=== PATIENT | male | born 1990 ===

== ENCOUNTER 2024-03-08 14:43 | Emergency (ER) | payer MEDICAID, SELFPAY ==
[2024-03-08] VITALS (10 sets, daily range): BP systolic 162–172; BP diastolic 114–125; PULSE 77–87; RESP 12–23; TEMP 36.8; O2SAT 97–100
--- NOTE | ~2024-03-08 | XR_ITS ---
Clinical Indication: Shortness of breath PA and lateral views of the chest: Comparison: None Findings: The lungs are clear, without evidence of focal consolidation or pleural effusion. Cardiome diastinal silhouette is within normal limits. Bones and soft tissues are unremarkable. Impression: Normal chest. Reviewed, dictated and finalized at [facility]. Impression: Normal chest.
--- NOTE | 2024-03-08 14:47 | ECG_ITS ---
Test Date: 2024-03-08 14:58:48 Measurements Intervals [place] Rate: 84 P: 64 DC: 132 QRS: 58 QRSD: 85 T: 34 QT: 372 QTc: 440 Interpretive Statements SINUS RHYTHM BASELINE ARTIFACT- I, II, AVR NORMAL ECG No previous ECG available for comparison Electronically Signed On 03-08-2024 20:50:15 CDT by Juan Villanueva D.O.
[2024-03-08 15:34] LABS: Basophils Percent Auto 0.2 % (0.2-1.2); Eosinophils Absolute Auto 0.1 K/mm3 (0-0.3); Hematocrit 41.6 % (42.0-52.0); Hemoglobin 14.8 g/dL (14.0-18.0); Immature Granulocyte Absolute 0.03 K/mm3 (0.00-0.031); Immature Granulocyte Percent A 0.6 % (0-0.5); Lymphocytes Absolute Auto 1.45 K/mm3 (0.9-3.2); Lymphocytes Percent Auto 27.7 % (18.3-44.2); Mean Corpuscular HGB Conc 35.6 g/dl (32-36); Mean Corpuscular Hemoglobin 30.1 pg (26-34); Mean Corpuscular Volume 84.7 fl (80-100); Mean Platelet Volume 10.2 fl (7.4-10.4); Monocytes Absolute Auto 0.4 K/mm3 (0.1-0.6); Monocytes Percent Auto 6.7 % (2.6-8.5); Neutrophils Absolute Auto 3.3 K/mm3 (1.3-6.7); Neutrophils Percent Auto 63.8 % (45.5-73.1); Platelet Count Result 196 k/mm3 (150-375); Red Blood Count 4.91 M/mm3 (4.6-6.20); Red Cell Distribution Width 12.3 % (11.5-14.5); White Blood Count 5.2 K/mm3 (4.5-10.0)
[2024-03-08 15:46] LABS: Alanine Aminotransferase 62 U/L (6-50); Albumin Level 4.7 g/dL (3.5-5.1); Alkaline Phosphatase 62 U/L (38-126); Anion Gap 9 mmol/L (4-12); Aspartate Amino Transferase 38 U/L (17-59); Bilirubin,Total 0.6 mg/dL (0.2-1.3); Blood Urea Nitrogen 12 mg/dL (9-20); Calcium 8.9 mg/dL (8.4-10.2); Carbon Dioxide 26 mmol/L (22-30); Chloride 105 mmol/L (98-107); Estimated Glomerular Filt Rate > 60; Glucose 104 mg/dL (65-110); Potassium 3.9 mmol/L (3.4-5.0); Sodium 140 mmol/L (137-145)
[2024-03-08 15:51] LABS: D Dimer < 0.27 ug/mL (<0.48)
[2024-03-08 15:57] LABS: NT Pro B Type Natriuretic Pept < 20 pg/mL (19.9-100); Troponin I < 0.012 ng/mL (0.000-0.034)
--- NOTE | 2024-03-08 17:03 | ED.SOB ---
HPI - SOB/Dyspnea General Chief Complaint: Shortness of Breath/Dyspnea Stated Complaint: epigastric pain Time Seen by Provider: 03/08/24 14:51 Source: patient Mode of arrival: ambulatory Limitations: language barrier History of Present Illness HPI Narrative: 34-year-old here with the complaints of shortness of breath which is been ongoing for quite some time. 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 He has no previous history of COPD or asthma or CHF. She denies cough or fever or chills. MD elicited complaint: shortness of breath Onset (ago): unknown Timing: constant Severity: moderate Exacerbating factors: nothing Relieving factors: nothing Associated symptoms: denies other symptoms Related Data Home oxygen amount: none Allergies Allergy/AdvReac Type Severity Reaction Status Date / Time No Known Allergies Allergy Verified 03/08/24 17:15 Review of Systems Review of Systems: All systems reviewed & are unremarkable except as noted in HPI and below Constitutional: Constitutional: Reports no additional constitutional complaints Eyes: Eyes: Reports no additional eye complaints ENT: Reports system reviewed and no additional complaints, except as documented Cardiovascular: Cardiovascular: Reports no additional cardiovascular complaints Respiratory: Respiratory: Reports as per HPI Musculoskeletal: Musculoskeletal: Reports no additional musculoskeletal complaints Neurologic: Reports system reviewed and no additional complaints, except as documented Psychiatric: Psychiatric: Reports no additional psychiatric complaints Endocrine: Endocrine: Reports no additional endocrine complaints Exam Narrative: GENERAL: Well-appearing, well-nourished, and in no acute distress. HEAD: Normocephalic, atraumatic. EYES: PERRLA and EOMI. ENT: Nares clear, no rhinorrhea or epistaxis. Mucous membranes moist. NECK: Supple. CHEST: Clear to auscultation. No respiratory distress. HEART: Regular rate and rhythm. No murmur heard. Normal peripheral pulses. ABDOMEN: Soft, nontender, nondistended, normal active bowel sounds. EXTREMITIES: Normal range of motion. No edema. SKIN: Warm, dry, no rash. NEURO: No focal deficits. Alert and oriented x3. PSYCH: Normal mood and affect. Course Course Emergency Course: I have explained all the lab work, EKG and chest x-ray findings of the patient through the lang interpreter. Patient started taking pictures of me on his phone I have advised him not to do that. He he tells me through the lang interpreter that he may go to another hospital and if they see anything wrong with him he will bernardino me , I have informed him that he can go anywhere he wants and he can get tested again. I have done what is needed for the patient at this time. Vital Signs Vital signs: Vital Signs Pulse Rate 81 03/08/24 14:55 Respiratory Rate 14 03/08/24 14:55 Blood Pressure 162/125 H 03/08/24 14:55 Pulse Oximetry 97 03/08/24 14:55 Temperature 36.8 C 03/08/24 15:45 Pulse Rate 85 03/08/24 17:08 Respiratory Rate 14 03/08/24 17:08 Blood Pressure 167/114 H 03/08/24 17:08 Pulse Oximetry 100 03/08/24 17:08 Oxygen Delivery Room Air 03/08/24 15:02 MDM - SOB/Dyspnea Lab Data 03/08/24 15:28 03/08/24 15:28 Labs: Lab Results 03/08/24 Range/Units 15:28 WBC 5.2 (4.5-10.0) K/mm3 RBC 4.91 (4.6-6.20) M/mm3 Hgb 14.8 (14.0-18.0) g/dL Hct 41.6 L (42.0-52.0) % MCV 84.7 (80-100) fl MCH 30.1 (26-34) pg MCHC 35.6 (32-36) g/dl RDW 12.3 (11.5-14.5) % Plt Count 196 (150-375) k/mm3 MPV 10.2 (7.4-10.4) fl Immature Gran % (Auto) 0.6 H (0-0.5) % Neut % (Auto) 63.8 (45.5-73.1) % Lymph % (Auto) 27.7 (18.3-44.2) % [place] % (Auto) 6.7 (2.6-8.5) % Eos % (Auto) 1.0 (0-4.4) % Baso % (Auto) 0.2 (0.2-1.2) % Lymph # (Auto) 1.45 (0.9-3.2) K/mm3 [place] # (Auto) 0.4 (0.1-0.6) K/mm3 Eos # (Auto) 0.1
[2024-03-08] MEDS: amLODIPine BESYLATE 5 MG TABLET PO (17:20)
== END 2024-03-08 17:35 | disposition home or self-care (01) ==
PROVIDERS: Emergency Provider Family Medicine
DX: R06.02 Shortness of breath (principal); R03.0 Elevated blood-pressure reading, without diagnosis of hypertension
CPT/HCPCS: 36415; 71046; 80053; 83880; 84484; 85025; 85380; 93005; 99284; A9270